=== PATIENT | female | born 1990 | race Caucasian/White ===

== ENCOUNTER 2018-08-12 22:35 | Emergency (ER) | payer OTHER ==
[~2018-08-12] VITALS: Ht 165.1 cm; Wt 63.5 kg
[2018-08-12] MEDS ORDERED: LOESTRIN FE 1-1 EACH PO (22:44)
[2018-08-12] MEDS ORDERED: CENTANY30 GM TOP (23:30)
[2018-08-13 00:06] VITALS: BP 122/76
== END 2018-08-13 00:06 | disposition home or self-care (01) ==
LOC: M.ERS 22:35
DX: S61.216A Laceration without foreign body of right little finger without damage to nail, initial encounter (principal); W26.8XXA Contact with other sharp object(s), not elsewhere classified, initial encounter; Y93.89 Activity, other specified; Y92.89 Other specified places as the place of occurrence of the external cause; Y99.8 Other external cause status